=== PATIENT | female | born 1955 | race Caucasian/White ===

== ENCOUNTER 2023-01-13 20:30 | Emergency (ER) | payer MEDICARE, OTHER ==
[~2023-01-13] VITALS: Ht 172.7 cm; Wt 72.5 kg
[2023-01-13 21:01] LABS: BASOPHILS 0.6 % (0-2); EOSINOPHILS 1.2 % (0-6); HEMATOCRIT 37.9 % (35.0-50.0); HEMOGLOBIN 12.6 g/dL (12.0-18.0); LYMPHOCYTES 14.2 % (24-44); MCH 29.8 (27-36); MCHC 33.3 g/dl (30-36); MCV 89.4 fl (81-99); PLATELET COUNT 218 K/uL (140-440); RBC 4.24 M/ul (4.3-5.7); RDW 14.6 (10.5-15.0)
[2023-01-13 21:12] LABS: ALBUMIN 3.5 g/dL (3.4-5.0); ALBUMIN/GLOBULIN RATIO 1.25 (1.1-2.4); ANION GAP 11.4 (7-21); BILIRUBIN, TOTAL 0.4 ng/dL (0.2-1.0); BUN/CREATININE RATIO 25.37 (6.0-28.6); CALCIUM 8.2 mg/dL (8.5-10.1); CREATININE, SERUM 0.67 mg/dL (0.55-1.02); POTASSIUM 3.4 mmol/L (3.5-5.1); PROTEIN, TOTAL 6.3 g/dL (6.4-8.2)
[2023-01-13 22:18] VITALS: BP 96/58
== END 2023-01-13 22:19 | disposition home or self-care (01) ==
LOC: ED 20:30
PROVIDERS: Family Medicine
DX: T40.711A Poisoning by cannabis, accidental (unintentional), initial encounter (principal); G20.A1 Parkinson's disease without dyskinesia, without mention of fluctuations
CPT/HCPCS: 36415; 70450; 80053; 85025; 99284-25; J2060

== ENCOUNTER 2024-01-20 10:06 | Emergency (ER) | payer MEDICARE, OTHER, MEDICAID ==
[~2024-01-20] VITALS: Ht 172.7 cm; Wt 61.4 kg
[2024-01-20] MEDS ORDERED: SODIUM CHLORIDE 0.9% 1,000 ML IV ONE (11:00)
[2024-01-20] MEDS ORDERED: ondansetron HCL 4 MG/2 ML VIAL IV ONE (11:00)
[2024-01-20] MEDS ORDERED: KETOROLAC TROMETHAMINE 15 MG/ML VIAL IV ONE (11:00)
[2024-01-20 11:06] LABS: BASOPHILS 0.5 % (0-2); EOSINOPHILS 0.6 % (0-6); HEMATOCRIT 40.8 % (35.0-50.0); LYMPHOCYTES 21.9 % (24-44); MCH 30.8 (27-36); MCHC 34.4 g/dl (30-36); MCV 89.8 fl (81-99); MONOCYTES 9.2 % (0-12); NEUTROPHILS 67.8 % (39-80); PLATELET COUNT 251 K/uL (140-440); RBC 4.54 M/ul (4.3-5.7); RDW 14.6 (10.5-15.0)
[2024-01-20 11:26] LABS: ALBUMIN 4.1 g/dL (3.4-5.0); ALBUMIN/GLOBULIN RATIO 1.21 (1.1-2.4); ANION GAP 16.2 (7-21); BILIRUBIN, TOTAL 1.1 ng/dL (0.2-1.0); BUN/CREATININE RATIO 18.29 (6.0-28.6); CALCIUM 9.2 mg/dL (8.5-10.1); CREATININE, SERUM 0.82 mg/dL (0.55-1.02); POTASSIUM 4.2 mmol/L (3.5-5.1); PROTEIN, TOTAL 7.5 g/dL (6.4-8.2)
[2024-01-20 11:47] LABS: BILIRUBIN, URINE NEGATIVE (negative); BLOOD/HGB, URINE SMALL (Negative); KETONE, URINE SMALL (Negative); LEUK ESTERASE, URINE NEGATIVE (negative); NITRITE, URINE NEGATIVE (negative)
[2024-01-20 12:00] LABS: BACTERIA, URINE NONE SEEN /hpf (negative); CASTS, URINE NONE SEEN \\lpf; COLLECTION TYPE, URINE CLEAN CATCH; CRYSTALS, URINE NONE SEEN (0-1+); EPITHELIAL CELLS, URINE OCCASIONAL /lpf (0-1+); REFLEX CULTURE, URINE No (No)
[2024-01-20] MEDS ORDERED: CARBIDOPA-LEVO1 EAC9 PO (12:21)
[2024-01-20] MEDS ORDERED: ONDANSETRON ODT8 MG PO (12:21)
[2024-01-20 12:30] VITALS: BP 147/89
== END 2024-01-20 12:35 | disposition home or self-care (01) ==
LOC: ED 10:06
PROVIDERS: Emergency Medicine
DX: R10.12 Left upper quadrant pain (principal); G20.A1 Parkinson's disease without dyskinesia, without mention of fluctuations; I10 Essential (primary) hypertension
CPT/HCPCS: 36415; 74177; 80053; 81001; 83690; 85025; 96375; 99284-25; J1885; J2405; J7030; Q9967